=== PATIENT | male | born 1935 | race Caucasian/White ===

== ENCOUNTER → 2016-07-31 | Day surgery (SDC) | payer OTHER ==
[~2016-07-31] MED LIST: ASPIRIN ENTERI325 M1 PO; ASPIRIN PO; FLOMAX0.4 M1; FLOMAX0.4 MG PO; HYZAAR 100-25 T1 TAB PO; LOPRESSOR PO; LORAZEPAM1 MG PO; LOSARTAN-HCTZ1 EAC1 PO; METOPROLOL SUCC25 MG PO; MULTI VITAMIN1 EACH PO; TYLOX 5/500 CAP1 CAP PO; ZOCOR PO; ZOCOR20 MG PO
--- NOTE | ~2016-07-31 | OR ---
Unit #: [id number] #: [id number] Patient: STEPHANIA HOFFMAN [id number] [address] [place], [place] [address] [id number] MR#: [id number] NAME: STEPHANIA HOFFMAN ROOM: Date of Procedure: 07/31/2016 Admission Date: 07/31/2016 Surgeon: Antwan Charles M.D. : 1935 Attending Physician: Antwan Charles M.D. Primary Care Physician: Reina Carrillo M.D. OPERATIVE REPORT PREOPERATIVE DIAGNOSES Colorectal cancer screening. The patient has never had a colonoscopy in the past. He has single episode of left lower quadrant abdominal pain, which since then has resolved. PROCEDURE PERFORMED Colonoscopy up to cecum and terminal ileum. POSTOPERATIVE DIAGNOSES 1. The patient had localized sigmoid and descending colon diverticulosis. 2. Small internal hemorrhoids. 3. Rest of the examination up to cecum and terminal ileum was normal. The quality of the prep was excellent. RECOMMENDATIONS No further evaluation is indicated. Reassurance is in order. SEDATION USED MAC. DESCRIPTION OF PROCEDURE Following detailed explanation of the potential risks and complications of a colonoscopy, namely perforation, bleeding, and complications related to sedation, the patient was brought to GI lab and laid in the left lateral decubitus position. A digital rectal examination was performed, which was normal. Lubricated tip of the Olympus video colonoscope was inserted through the anus and advanced under direct vision. The scope was advanced past rectosigmoid into descending colon. Localized moderately severe sigmoid diverticulosis was noted. The scope tip was then navigated all the way up to cecum with visualization of the ileocecal valve and the appendiceal orifice. Preparation was excellent with good visualization and photodocumentation was obtained. Last few inches of the terminal ileum were also visualized after intubation of the ileocecal valve and appeared normal. Successive segments of the colonic mucosa were examined upon withdrawal and appeared unremarkable. There being no polyps, mass lesions, or AVMs. Other than the localized sigmoid diverticula, the patient was also noted to have small internal hemorrhoids seen at the anal verge. The scope was then withdrawn and the patient returned to recovery area. He tolerated the procedure without any postprocedure complications. Dictated by... Unit #: [id number] #: [id number] Patient: STEPHANIA HOFFMAN M.D. AK/modl TD: 07/31/2016 12:57 JOB #: [id number] OPERATIVE REPORT Page 1 of 1 X Antwan Charles MD PROCEDURE OPERATIVE NOTE
== END | disposition home or self-care (01) ==
LOC: COPS 08:11
DX: Z12.11 Encounter for screening for malignant neoplasm of colon (principal); K57.30 Diverticulosis of large intestine without perforation or abscess without bleeding; K64.8 Other hemorrhoids; I10 Essential (primary) hypertension; I25.2 Old myocardial infarction; K21.9 Gastro-esophageal reflux disease without esophagitis; N40.0 Benign prostatic hyperplasia without lower urinary tract symptoms; Z88.2 Allergy status to sulfonamides; Z95.5 Presence of coronary angioplasty implant and graft; Z90.49 Acquired absence of other specified parts of digestive tract; Z98.890 Other specified postprocedural states; Z79.82 Long term (current) use of aspirin; Z79.899 Other long term (current) drug therapy